=== PATIENT | female | born 1990 | race Two or more races ===

== ENCOUNTER 2021-06-08 11:19 | Inpatient (IN) | payer OTHER ==
[2021-06-08 12:27] LABS: BASO % 0.5 % (0-2.0); EOS % 0.6 % (0-4.5); HEMATOCRIT 34.9 % (32.4-45.2); LYMPH % 21.9 % (8-40); MCH 33.3 pg (25.7-33.7); MCHC 34.4 g/dl (32.0-36.0); MEAN CELL VOLUME 96.6 fl (80-96); MEAN PLT VOLUME 10.1 fl (7.5-11.1); PLATELET COUNT 296 10^3/uL (134-434); RBC 3.61 M/mm3 (3.60-5.2); RDW 13.3 % (11.6-15.6); WHITE BLOOD COUNT 11.2 K/mm3 (4.0-10.0)
[2021-06-08 12:30] LABS: INR 0.92 (0.83-1.09); PROTHROMBIN TIME (PATIENT) 11.2 SEC (9.7-13.0)
[2021-06-08] MEDS: ELECTROLYTE-148 SOLN 1,000 ML IV SCH (12:45)
[2021-06-08 12:54] LABS: CALCIUM 8.6 mg/dL (8.5-10.1)
[2021-06-08 12:58] LABS: CREATININE 0.7 mg/dL (0.55-1.3)
[2021-06-08] MEDS ORDERED: PROMETHAZINE HCL 25 MG/1 ML VIAL IVPUSH ONE (13:08)
[2021-06-08] MEDS ORDERED: BUTORPHANOL TARTRATE 1 MG/ML VIAL IVPB ONE (13:08)
[2021-06-08 13:12] VITALS: BMI 34.4
[2021-06-08] MEDS ORDERED: DEXTROSE 5%-LACTATED RINGERS 1,000 ML IV SCH (13:15)
[2021-06-08] MEDS ORDERED: OXYTOCIN 30 UNITS in 0.9% NS 30 UNIT/500 ML INFUS.BAG IVPB ONE (13:25)
[2021-06-08] MEDS: OXYTOCIN 30 UNITS in 0.9% NS 30 UNIT/500 ML INFUS.BAG IVPB SCH (13:30)
[2021-06-08 13:48] LABS: HIV INTERPRETATION NEGATIVE (NEGATIVE)
[2021-06-08] MEDS ORDERED: BUTORPHANOL TARTRATE 2 MG/ML VIAL ONE (17:39)
[2021-06-08] MEDS ORDERED: PROMETHAZINE HCL 25 MG/1 ML VIAL ONE (17:39)
[2021-06-08] MEDS ORDERED: OXYTOCIN 20 UNITS in 0.9% NS 20 UNIT/1,000 ML INFUS.BAG IV ONE (21:49)
[2021-06-08] MEDS ORDERED: OXYTOCIN 20 UNITS in 0.9% NS 20 UNIT/1,000 ML INFUS.BAG IV SCH (23:45)
[2021-06-08] MEDS ORDERED: BISACODYL 10 MG SUPP.RECT RC PRN (23:48)
[2021-06-08] MEDS ORDERED: WITCH HAZEL 50% (TUCKS) 40 PAD/JAR PAD TP PRN (23:48)
[2021-06-08] MEDS ORDERED: BENZOCAINE 28 GM HEMORRHOIDAL OINTMENT TP PRN (23:48)
[2021-06-08] MEDS ORDERED: oxyCODONE HCL 5 MG TABLET PO PRN (23:48)
[2021-06-08] MEDS ORDERED: BENZOCAINE 20% 57 GM BOTTLE TP PRN (23:48)
[2021-06-08] MEDS ORDERED: METHYLERGONOVINE MALEATE 0.2 MG/1 ML AMP IM PRN (23:48)
[2021-06-09] MEDS ORDERED: IBUPROFEN 600 MG TABLET (FP) PO ONE (00:44)
[2021-06-09] MEDS ORDERED: ACETAMINOPHEN 325 MG TABLET (FP) ONE (00:44)
[2021-06-09] MEDS: ACETAMINOPHEN 325 MG TABLET (FP) PO PRN (00:45)
[2021-06-09] MEDS: IBUPROFEN 600 MG TABLET (FP) PO PRN ×2 (00:45→15:26)
[2021-06-09 08:56] LABS: BASO % 0.4 % (0-2.0); EOS % 0.2 % (0-4.5); HEMATOCRIT 31.1 % (32.4-45.2); HEMOGLOBIN 10.9 GM/dL (10.7-15.3); LYMPH % 17.4 % (8-40); MCH 33.9 pg (25.7-33.7); MCHC 34.9 g/dl (32.0-36.0); MONO % 11.9 % (3.8-10.2); NEUT % 70.1 % (42.8-82.8); PLATELET COUNT 255 10^3/uL (134-434); RBC 3.21 M/mm3 (3.60-5.2); RDW 13.5 % (11.6-15.6); WHITE BLOOD COUNT 18.3 K/mm3 (4.0-10.0)
[2021-06-09] MEDS: PRENATAL VITAMINS W/ FOLIC ACID TABLET (FP) PO SCH (09:27)
[2021-06-09] MEDS: OXYTOCIN 30 UNITS in 0.9% NS 30 UNIT/500 ML INFUS.BAG IVPB SCH (14:21)
[2021-06-09] MEDS: ELECTROLYTE-148 SOLN 1,000 ML IV SCH (14:21)
[2021-06-09] MEDS ORDERED: SENNOSIDES/DOCUSATE COMBO (SENNA PLUS) TABLET (UD) PO PRN (22:00)
[2021-06-10] MEDS: IBUPROFEN 600 MG TABLET (FP) PO PRN (00:38)
[2021-06-10] MEDS: ACETAMINOPHEN 325 MG TABLET (FP) PO PRN (00:39)
[2021-06-10] MEDS: PRENATAL VITAMINS W/ FOLIC ACID TABLET (FP) PO SCH (09:11)
[2021-06-10 11:23] VITALS: BP 123/87; PULSE 76; TEMP 97.9
== END 2021-06-10 09:40 | disposition home or self-care (01) | DRG 807 ==
LOC: JLDR 11:19 → J3W 06-09 02:40
PROVIDERS: ADMIT Obstetrics & Gynecology; ATTEND Obstetrics & Gynecology
PROC: 10E0XZZ Delivery of Products of Conception, External Approach (ICD-10-PCS; principal; 2021-06-08)
DX: O42.02 Full-term premature rupture of membranes, onset of labor within 24 hours of rupture (principal); Z37.0 Single live birth; O70.0 First degree perineal laceration during delivery; Z3A.38 38 weeks gestation of pregnancy; Z88.2 Allergy status to sulfonamides
CPT/HCPCS: 36415; 59409; 80048; 85025; 85610; 85730; 86780; 86850; 86900; 86901; 87389; C9803; U0003; U0005